=== PATIENT | female | born 1955 | race Two or more races ===

== ENCOUNTER 2018-02-23 12:53 | Outpatient (CLI) | payer OTHER ==
[~2018-02-23 12:53] MED LIST: CATAFLAM50 MG PO
== END 2018-02-23 12:59 | disposition home or self-care (01) ==
LOC: MAMO-SONO 12:53
DX: Z12.31 Encounter for screening mammogram for malignant neoplasm of breast (principal); N60.09 Solitary cyst of unspecified breast

== ENCOUNTER 2018-03-18 14:24 | Outpatient (CLI) | payer OTHER | END 2018-03-18 15:29 | disposition home or self-care (01) | LOC: RAD 501 14:24 | DX: M54.5 Low back pain (principal) ==

== ENCOUNTER 2019-03-30 09:18 | Outpatient (CLI) | payer OTHER | END 2019-03-30 09:30 | disposition home or self-care (01) | LOC: MAMO-SONO 09:18 | DX: N60.19 Diffuse cystic mastopathy of unspecified breast (principal); R07.89 Other chest pain ==

== ENCOUNTER 2019-04-09 12:00 | Outpatient (CLI) | payer OTHER | END 2019-04-09 12:01 | disposition home or self-care (01) | LOC: NUCLEAR 12:00 | DX: M81.0 Age-related osteoporosis without current pathological fracture (principal); E55.9 Vitamin D deficiency, unspecified; Z13.820 Encounter for screening for osteoporosis ==

== ENCOUNTER 2020-04-26 07:16 | Outpatient (CLI) | payer OTHER | END 2020-04-26 07:18 | disposition home or self-care (01) | LOC: SONOGRAMA 07:16 | PROVIDERS: ATTEND Surgery | DX: M75.111 Incomplete rotator cuff tear or rupture of right shoulder, not specified as traumatic (principal) ==

== ENCOUNTER → 2021-02-15 | Outpatient (CLI) | payer OTHER | END | disposition home or self-care (01) | LOC: MAMO-SONO 09:41 | PROVIDERS: ATTEND Specialist | DX: N63.0 Unspecified lump in unspecified breast (principal) ==

== ENCOUNTER 2021-10-24 08:39 | Outpatient (CLI) | payer OTHER | END 2021-10-24 08:41 | disposition home or self-care (01) | LOC: NUCLEAR 08:39 | PROVIDERS: ATTEND Internal Medicine | DX: I20.1 Angina pectoris with documented spasm (principal) ==

== ENCOUNTER 2021-10-24 09:06 | Outpatient (CLI) | payer OTHER | END 2021-10-24 09:07 | disposition home or self-care (01) | LOC: LAB 09:06 | PROVIDERS: ATTEND Internal Medicine | DX: U07.1 COVID-19 (principal); B34.1 Enterovirus infection, unspecified ==

== ENCOUNTER 2022-04-03 08:38 | Outpatient (CLI) | payer OTHER | END 2022-04-03 09:00 | disposition home or self-care (01) | LOC: MAMO-SONO 08:38 | PROVIDERS: ATTEND Specialist | DX: Z12.31 Encounter for screening mammogram for malignant neoplasm of breast (principal) ==

== ENCOUNTER 2022-04-03 10:35 | Outpatient (CLI) | payer OTHER | END 2022-04-03 10:38 | disposition home or self-care (01) | LOC: NUCLEAR 10:35 | PROVIDERS: ATTEND Specialist | DX: M85.9 Disorder of bone density and structure, unspecified (principal) ==

== ENCOUNTER 2023-01-10 08:27 | Outpatient (CLI) | payer OTHER | END 2023-01-10 08:50 | disposition home or self-care (01) | LOC: RAD 08:27 | PROVIDERS: ATTEND Physical Medicine & Rehabilitation | DX: M41.85 Other forms of scoliosis, thoracolumbar region (principal) ==

== ENCOUNTER → 2023-11-07 | Outpatient (CLI) | payer OTHER | END | disposition home or self-care (01) | LOC: MAMO-SONO 09:21 | PROVIDERS: ATTEND Specialist | DX: D24.9 Benign neoplasm of unspecified breast (principal); Z12.31 Encounter for screening mammogram for malignant neoplasm of breast ==

== ENCOUNTER → 2024-12-29 | Outpatient (CLI) | payer OTHER | END | disposition home or self-care (01) | LOC: MAMO-SONO 08:27 | PROVIDERS: ATTEND Specialist | DX: D24.9 Benign neoplasm of unspecified breast (principal); Z12.31 Encounter for screening mammogram for malignant neoplasm of breast ==